=== PATIENT | female | born 1990 | race Caucasian/White ===

== ENCOUNTER 2017-07-01 15:22 | Emergency (ER) | payer SELFPAY ==
[~2017-07-01] VITALS: Ht 162.6 cm; Wt 90.7 kg
[2017-07-01 15:38] VITALS: BP 131/88
== END 2017-07-01 20:00 | disposition home or self-care (01) ==
LOC: ER 15:26
DX: J06.9 Acute upper respiratory infection, unspecified (principal)
CPT/HCPCS: 96372